=== PATIENT | female | born 1940 | race Caucasian/White ===

== ENCOUNTER 2018-07-15 00:53 | Inpatient (IN) | payer OTHER, MEDICARE ==
[~2018-07-15] VITALS: Ht 165.1 cm; Wt 45.8 kg
[~2018-07-15 00:53] MED LIST: ALIGN4 M1; ATENOLOL50 M1 PO; CRESTOR5 M1 PO; LOSARTAN POTASS50 M1 PO; TAMOXIFEN CITRA20 M1 PO
[2018-07-15] MEDS ORDERED: ACETAMINOPHEN500 M4 PO (07:54)
--- NOTE | 2018-07-15 10:07 | Admission Core Measures ---
Acute Coronary Syndrome (CM) ACS Core Measures Acute Coronary Syndrome Diagnosis No Congestive Heart Failure (NEW) CHF Core Measures Congestive Heart Failure Diagnosis No Cerebrovascular Accident CVA Core Measures CVA/TIA Diagnosis No Venous Thromboembolism VTE Core Job (View Protocol) VTE Risk Factors Surgery No Mechanical VTE Prophylaxis d/t N/A MechProphylax Ordered No VTE Pharm Prophylaxis d/t NA PharmProphylax ordered Problem List As ranked by this Provider includes Assessment & Plan 1. Status post total hip replacement, right HOME MEDS Home Med List Atenolol 50 MG TABLET 1 TAB PO DAILY HTN (Reported) Losartan Potassium 50 MG TABLET 1 TAB PO DAILY HTN (Reported) Rosuvastatin Calcium (Crestor) 5 MG TABLET 1 TAB PO DAILY CHOLESTEROL ( Reported) Tamoxifen Citrate 20 MG TABLET 1 TAB PO DAILY BREAST CA (Reported)
--- NOTE | 2018-07-15 10:09 | Surg Short-stay <48hrs Dis Sum ---
Visit Information Visit Dates Admission Date: 07/15/18 Discharge Date: 07/15/18 Surgical Short Stay DC Summary Admission Diagnosis: OA/DJD Final Diagnosis: SAME, S/P R THR Procedure(s): R THR - SEE OPERATIVE REPORT Summary/Significant Findings: Pt underwent R THR by Dr Cordero and was brought to the PACU in stable condition. Post op she was able to void, tolerated a diet, pain was well controlled with oral medication, she ambulated with PT and she was cleared for discharge home with services. Condition at Discharge: good Discharge Disposition: home health services Discharge instructions provided to patient/family: Yes Post discharge follow-up plan: Keep scheduled appointment with Dr Cordero, call sooner if needed Copies to: Lukasz Cordero MD
--- NOTE | 2018-07-15 10:11 | Patient Discharge Instructions ---
Discharge Instructions General Discharge Information You were seen/treated for: Hip pain You had these procedures: Total hip replacement Watch for these problems: See pre printed sheet Do not soak the wound: Yes Other wound care: Keep incision clean and dry. May shower, no bathing or soaking Diet Continue normal diet: Yes Activity Activity Self Limited: Yes Activity Limited to: Weight bear as tolerated Acute Coronary Syndrome Inclusion Criteria At DC or during hospital stay patient has or had the following: ACS DIAGNOSIS No Discharge Core Measures Meds if any: Prescribed or Continued at Discharge Meds if any: NOT Prescribed or Continued at Discharge Congestive Heart Failure Inclusion Criteria At DC or during hospital stay patient has or had the following: CHF DIAGNOSIS No Discharge Core Measures Meds if any: Prescribed or Continued at Discharge Meds if any: NOT Prescribed or Continued at Discharge Cerebrovascular accident Inclusion Criteria At DC or during hospital stay patient has or had the following: CVA/TIA Diagnosis No Discharge Core Measures Meds if any: Prescribed or Continued at Discharge Meds if any: NOT Prescribed or Continued at Discharge Venous thromboembolism Inclusion Criteria VTE Diagnosis No VTE Type NONE VTE Confirmed by (Test) NONE Discharge Core Measures - Per Current guidelines, there needs to be overlap - treatment for the first 5 days of Warfarin therapy. - If discharged on Warfarin prior to 5 days of - overlap therapy, the patient will need to be - assessed for post discharge needs including - *Post discharge parental anticoagulation - *Warfarin and/or parental anticoagulation education - *Follow up date to check INR post discharge At least 5 days overlap therapy as Inpatient No Meds if any: Prescribed or Continued at Discharge Note: Overlap Therapy is Warfarin and Anticoagulant Meds if any: NOT Prescribed or Continued at Discharge
[2018-07-15] MEDS ORDERED: DILAUDID2 M1 PO (10:13)
[2018-07-15] MEDS ORDERED: MIRALAX17 G1 PO (10:13)
[2018-07-15] MEDS ORDERED: COLACE100 M1 PO (10:13)
[2018-07-15] MEDS ORDERED: ASPIRIN EC81 M1 PO (10:13)
[2018-07-15] MEDS ORDERED: OMEPRAZOLE20 M3 PO (10:53)
--- NOTE | 2018-07-15 12:51 | RADIOLOGY REPORT ---
EXAMINATION: XR HIP, RIGHT CLINICAL INFORMATION: Post right hip arthroplasty. COMPARISON: None TECHNIQUE: Two views of the right hip. FINDINGS: The patient is status post total right hip arthroplasty with the prosthetic components well seated within the [place] bone. No hardware failure or [place] bone fracture is seen. Postoperative changes are noted in the soft tissues and soft tissue drain is in place. Included portions of right sacroiliac joint unremarkable. IMPRESSION: Anatomic alignment status post total right hip arthroplasty. No hardware failure or [place] bone fracture seen.
--- NOTE | 2018-07-15 15:06 | PN- Orthopedic ---
Subjective Subjective: POST OP CHECK Awake, alert Has not ambulated yet post op Pain is well controlled - no pain at all since surgery Denies nausea/vomiting Has not voided yet post op Objective Vital Signs and I&Os VSS, afebrile Physical Exam: General: alert and oriented times three Chest: clear anteriorly bilaterally, RRR Abd: soft, good bs Ext: warm no edema, no calf tenderness, normosensate, good 5/5 MELVINA BLE Wd: dressed, dry, hemovac in place Current Medications: Current Medications Sig/Solo Start time Last Medication Dose Route Stop Time Status Admin Acetaminophen 1,000 MG Q6 07/15 1800 AC IV 07/16 1201 Acetaminophen 0 .STK-MED ONE 07/15 918 DC PO Acetaminophen 975 MG ONCE 07/15 0000 DC PO 07/15 235 Aspirin Buffered 81 MG BID 07/15 2100 AC PO Atenolol 50 MG DAILY 07/16 0900 DC PO Atenolol 50 MG DAILY 07/16 0900 AC PO Atorvastatin Calcium 20 MG 1700 07/15 1700 DC PO Atorvastatin Calcium 20 MG 1700 07/15 1700 AC PO Cefazolin Sodium 2 GM Q8H 07/15 1800 AC N/A 1 UNIT IV 07/16 0229 Cefazolin Sodium 2,000 MG ONCE 07/15 0000 DC IV 07/15 2359 Dextrose/Sodium 1,000 ML .Q10H 07/15 1500 AC Chloride IV Docusate Sodium 100 MG BID 07/15 2100 AC PO Fentanyl Citrate 0 .STK-MED ONE 07/15 0922 DC .ROUTE Hydromorphone HCl 2 MG Q4P PRN 07/15 1500 AC PO Hydromorphone HCl 4 MG Q4P PRN 07/15 1500 AC PO Losartan Potassium 50 MG DAILY 07/16 0900 DC PO Losartan Potassium 50 MG DAILY 07/16 0900 AC PO Midazolam HCl 0 .STK-MED ONE 07/15 0923 DC .ROUTE Morphine Sulfate 2 MG Q2P PRN 07/15 1500 AC IV Ondansetron HCl 4 MG Q6P PRN 07/15 1500 AC IV Oxycodone HCl 0 .STK-MED ONE 07/15 0918 DC PO Oxycodone HCl 10 MG ONCE 07/15 0000 DC PO 07/15 235 Polyethylene Glycol 17 GM DAILY 07/16 09 AC PO Tamoxifen Citrate 20 MG DAILY 07/16 0900 DC PO Tamoxifen Citrate 20 MG DAILY 07/16 0900 AC PO Tranexamic Acid 0 .STK-MED ONE 07/15 0923 DC IV Assessment/Plan Assessment/Plan 78yo female s/p R THR PT - wbat due to void pain management reg diet asa 81mg po bid for dvt ppx alps ice to incision Core Measures Venous Thromboembolism VTE Risk Factors Surgery No Mechanical VTE Prophylaxis d/t N/A MechProphylax Ordered No VTE Pharm Prophylaxis d/t NA PharmProphylax ordered
[2018-07-15 15:30] VITALS: BP 112/58
--- NOTE | 2018-07-15 15:46 | Operative Report ---
Operative/Inv Procedure Report Surgery Date: 07/15/18 Name of Procedure: Right total hip replacement Pre-Operative Diagnosis: Primary right hip DJD Post-Operative Diagnosis: Same Estimated Blood Loss: 350 Surgeon/High Reach Operator: Consuelo FARFAN,Lukasz [place] Anesthesia: block Operative/Procedure Note Note: Description of Procedure: The patient was taken to the operating room and positively identified. After induction of spinal anesthesia and administration of appropriate pre-operative antibiotics, the patient was positioned supine on the operating room table and all bony prominences were well padded. After performing a surgical timeout, the right lower extremity was prepped and draped in the usual sterile fashion. A direct anterior approach was made to the right hip. The incision was carried sharply through superficial soft tissues to the level of the fascia. Meticulous hemostasis was maintained with Bovie electocautery. The fascia over the tensor fascia liana muscle was opened sharply and the interval between the TFL and the sartorius was entered bluntly taking care to stay lateral to the lateral femoral cutaneous nerve. Retractors were placed around the femoral neck and the pericapsular fat was identified. The ascending branches of the lateral femoral circumflex vessels were identified and carefully coagulated. The pericapsular fat and anterior capsule were then resected. A napkin ring osteotomy was performed and the femoral head was removed without difficulty. Attention was then turned to the acetabulum. After appropriate placement of retractors, the acetabulum was exposed. Soft tissue was cleaned from the acetabular margin and notch. Overhanging osteophytes were removed and the teardrop was exposed. The acetabulum was then sequentially reamed to accept a 54 mm Shanell Tritanium hemispherical solid shell. This was impacted into place in the appropriate position and fitted with a 36 mm Trident X3 zero degree polyethylene insert. Attention was then turned to the femur. After performing the appropriate ligament releases, the proximal femur was exposed. It was then sequentially broached to accept a size #2 [place] Accolade 2 stem. This was trialed for leg length and stability. The trial component was removed and the final component was impacted into place. The trunnion was carefully cleaned and fit with a 36 mm, +2.5 Biolox delta ceramic femoral head. The hip was reduced and put through a full range of motion and found to be stable. The articular space was then irrigated with sterile saline. The periarticular soft tissues were infilitrated with Marcaine. The fascial layer was closed with interrupted #1 vicryl suture and the skin was re-approximated with interrupted 2 -0 vicryl. The skin was closed with a running 3-0 V-Lock suture. Steri-strips and a sterile dressing were applied. The patient was awakened and taken to the recovery room in satisfactory condition.
[2018-07-15 17:28] VITALS: BP 110/60
--- NOTE | 2018-07-15 18:16 | PN- Student ---
Kalie Marquez 07/15/181813: Assessment/Plan Assessment: Drain removal Removed hemovacc from right hip. clean dressings applied w/ pressure. pt tolerated well Ashley Chambers 07/15/181823: Resident Review Statement Other Findings: supervised. pt tolerated well.
== END 2018-07-15 19:00 | disposition home health service (06) | DRG 470 ==
LOC: SDA 00:53 → CANRESERV 13:48 → ENRESERV 13:48 → ENTRNSPT 14:25 → 2NA 14:44 → EDTRNSPTSTS 14:46 → EDTRNSPT 14:46 → CMPTRNSPT 14:57 → ENTRNSPT 18:33 → EDTRNSPTSTS 18:49 → EDTRNSPT 18:49 → 2NA 19:00 → CMPTRNSPT 19:13
PROC: 0SR904A Replacement of Right Hip Joint with Ceramic on Polyethylene Synthetic Substitute, Uncemented, Open Approach (ICD-10-PCS; principal; 2018-07-15)
DX: M16.11 Unilateral primary osteoarthritis, right hip (principal); I10 Essential (primary) hypertension; K21.9 Gastro-esophageal reflux disease without esophagitis; Z85.3 Personal history of malignant neoplasm of breast; E78.5 Hyperlipidemia, unspecified; Z90.12 Acquired absence of left breast and nipple; Z79.810 Long term (current) use of selective estrogen receptor modulators (SERMs); Z88.1 Allergy status to other antibiotic agents; Z88.0 Allergy status to penicillin
CPT/HCPCS: 2NASP; 73502-RT; 97116-GO; 97161-GP; J0131; J0690; J2405; J7042